=== PATIENT | female | born 1945 | race Caucasian/White ===

== ENCOUNTER 2016-06-26 10:46 | Day surgery (SDC) | payer MEDICARE ==
[2016-06-26] MEDS ORDERED: LACTATED RINGERS 1,000 ML IV ONE (11:35)
[2016-06-26] MEDS ORDERED: MIDAZOLAM 2 MG/2 ML VIAL IVP ONE (12:31)
[2016-06-26] MEDS ORDERED: fentaNYL 100 MCG/2 ML VIAL IVP ONE (12:31)
== END 2016-06-26 10:47 | disposition home or self-care (01) ==
PROC: 0DBN8ZX Excision of Sigmoid Colon, Via Natural or Artificial Opening Endoscopic, Diagnostic (ICD-10-PCS; 2016-06-26)
PROC: 0DBM8ZX Excision of Descending Colon, Via Natural or Artificial Opening Endoscopic, Diagnostic (ICD-10-PCS; 2016-06-26)
PROC: 0DBK8ZX Excision of Ascending Colon, Via Natural or Artificial Opening Endoscopic, Diagnostic (ICD-10-PCS; principal; 2016-06-26 12:00)
DX: R19.5 Other fecal abnormalities (principal); D12.2 Benign neoplasm of ascending colon; D12.4 Benign neoplasm of descending colon; D12.5 Benign neoplasm of sigmoid colon; K57.30 Diverticulosis of large intestine without perforation or abscess without bleeding; I10 Essential (primary) hypertension; J45.909 Unspecified asthma, uncomplicated; Z88.0 Allergy status to penicillin; Z88.2 Allergy status to sulfonamides
CPT/HCPCS: 45380; J7120

== ENCOUNTER 2017-12-04 10:04 | Outpatient (CLI) | payer MEDICARE ==
--- NOTE | 2017-12-05 12:15 | Mammography Report ---
Reason: SCREENING MAMMO Procedure Date: 12/04/2017 Accession Number: [id number] / [id number] Procedure: MGN - Screening Mammo Dig Bilat CPT Code: FULL RESULT: EXAM: Screening Mammo Dig Bilat DATE: 12/04/2017 10:33 AM CLINICAL HISTORY: 72-year-old female with family history of breast cancer in the mother at age 80 and a sister at age 60. TECHNIQUE: Bilateral CC and MLO views were obtained. COMPARISON: 04/29/2011, 11/24/2007, 06/19/2006. FINDINGS: The breasts demonstrate heterogeneously dense fibroglandular parenchyma bilaterally. Coarse typically benign calcifications are seen in both breasts. No suspicious masses, clustered microcalcifications, or regions of architectural distortion are identified. IMPRESSION: Benign findings RECOMMENDATION: Routine annual screening unless otherwise clinically indicated. BIRADS CATEGORY 2: Benign findings STANDARD QUALIFYING STATEMENTS: 1. This examination was reviewed with the aid of Computer-Aided Detection (CAD). 2. A negative or benign imaging report should not delay biopsy if clinically suspicious findings are present. Consider surgical consultation if warrented. More than 5% of cancers are not identified by imaging. 3. Dense breasts may obscure an underlying neoplasm. 4. This examination was reviewed without the aid of 3D breast imaging (tomosynthesis).
== END 2017-12-04 10:05 | disposition home or self-care (01) ==
LOC: DI.N 10:04
DX: Z12.31 Encounter for screening mammogram for malignant neoplasm of breast (principal); Z80.3 Family history of malignant neoplasm of breast
CPT/HCPCS: 77067

== ENCOUNTER 2019-04-29 07:29 | Day surgery (SDC) | payer MEDICARE ==
[~2019-04-29 07:29] MED LIST: CYCLOPENTOLATE 1% OPHTH DROPS 2 ML ONE; KETOROLAC 0.45% OPHTH DROPS ONE; PHENYLEPHRINE 2.5% OPHTH 2 ML DROPS ONE; PROPARACAINE 0.5% OPHTH DROPS 15 ML ONE
[2019-04-29] MEDS ORDERED: MIDAZOLAM 2 MG/2 ML VIAL IVP ONE (07:30)
[2019-04-29] MEDS ORDERED: LACTATED RINGERS 500 ML IV ONE (07:37)
[2019-04-29] MEDS ORDERED: PHENYLEPHRINE 2.5% OPHTH 2 ML DROPS LEFTEYE ONE (07:45)
[2019-04-29] MEDS ORDERED: PROPARACAINE 0.5% OPHTH DROPS 15 ML LEFTEYE ONE ×2 (07:45→09:01)
[2019-04-29] MEDS ORDERED: KETOROLAC 0.45% OPHTH DROPS LEFTEYE ONE (07:45)
[2019-04-29] MEDS ORDERED: CYCLOPENTOLATE 1% OPHTH DROPS 2 ML LEFTEYE ONE (07:45)
--- NOTE | 2019-04-29 07:55 | ANESTHESIA ---
Pre-Anesthesia VS, & Labs - Diagnosis left eye cataract - Procedure left eye cataract removal Vital Signs: Temp Pulse Resp BP Pulse Ox 36.5 C 65 18 187/96 H 94 04/29/19 07:38 04/29/19 07:38 04/29/19 07:38 04/29/19 07:38 04/29/19 07:38 Height 5 ft 1 in Weight (kg) 70.31 kg - Is Patient ?: No Home Medications and Allergies Cetirizine [ZyrTEC] 10 mg PO ONCE 06/25/16 Fluticasone 44 Mcg [Flovent] 1 puffs INH BID 06/25/16 lisinopriL [Lisinopril] 5 mg PO DAILY 06/25/16 Allergies/Adverse Reactions: Allergies Allergy/AdvReac Type Severity Reaction Status Date / Time Penicillins Allergy Anaphylaxis Verified 04/29/19 07:36 oxycodone HCl * AdvReac Unknown Verified 04/29/19 07:36 [From Percocet] Sulfa (Sulfonamide AdvReac Hives Verified 04/29/19 07:36 Antibiotics) Anes History & Medical History - Anesthetic History Anesthesia Complications: reports: No previous complications Family history of Anesthesia Complications: Denies Family history of Malignant Hyperthermia: Denies - Medical History Cardiovascular: reports: Hypertension Pulmonary: reports: Asthma Gastrointestinal: reports: None, GERD Urinary: reports: None Neuro: reports: None Musculoskeletal: reports: Osteoarthritis, Chronic back pain Endocrine/Autoimmune: reports: None Blood Disorders: reports: None Skin: reports: None Smoking Status: Never smoker Psychosocial: reports: No issues indicated - Surgical History General: Cholecystectomy Orthopedic: Spine surgery, Other Exam General: Alert, Oriented x3, Cooperative, No acute distress Dental: WNL Mouth Openin Fingerbreadth Neck Mobility: Normal Mallampati classification: III Thyromental Distance: less than 4 cm Respiratory: Lungs clear, Normal breath sounds, No respiratory distress, No accessory muscle use Cardiovascular: Regular rate, Normal S1, Normal S2, No murmurs Abdomen: Normal bowel sounds, Soft, No tenderness, No hepatospenomegaly, No masses Extremities: No clubbing, No cyanosis, No edema, Normal pulses, No tenderness/swelling Neurological: Normal gait, Normal speech, Strength at 5/5 X4 ext, Normal tone, Sensation intact, Cranial nerves 3-12 NL, Reflexes 2+ Mental/Cognitive Status: Alert/Oriented X3, Normal for patient Cognitive Status: Within normal limits Plan Anesthesia Type: MAC Consent for Procedure(s) Verified and Reviewed: Yes Code Status: Attempt Resuscitation ASA classification: 2-Mild systemic disease Is this case an emergency?: No
[2019-04-29] MEDS ORDERED: TRIAMCIN/MOXIFLOX OPHTHALMIC 0.6 ML VIAL IO ONE ×4 (08:25→09:01)
[2019-04-29] MEDS ORDERED: BRIMONIDINE 0.2% OPHTH DROPS 5 ML ONE (08:28)
[2019-04-29] MEDS ORDERED: VANCOMYCIN OPHTHALMI 8MG/0.8ML 8 MG/0.8 ML SYRINGE IO ONE ×2 (08:28→09:01)
[2019-04-29] MEDS ORDERED: timoloL maleate 0.5% OPHTH DROPS (10ML) ONE (08:28)
[2019-04-29] MEDS ORDERED: BSS/LIDOCAINE/EPINEPHRINE 1 ML SYRINGE ONE (08:28)
[2019-04-29] MEDS ORDERED: CHONDR SULF/HYALURONATE SYRINGE IO ONE (09:00)
[2019-04-29] MEDS ORDERED: BRIMONIDINE 0.2% OPHTH DROPS 5 ML OPTH ONE (09:00)
[2019-04-29] MEDS ORDERED: EPINEPHrine 1 MG/ML AMP IVP ONE (09:00)
[2019-04-29] MEDS ORDERED: TIMOLOL 0.5% OPHTH DROPS OPTH ONE (09:00)
[2019-04-29] MEDS ORDERED: BSS/LIDOCAINE/EPINEPHRINE 1 ML SYRINGE IO ONE (09:01)
[2019-04-29 09:26] VITALS: BP 157/82
--- NOTE | 2019-04-29 09:41 | OPERATIVE REPORT ---
DATE OF SERVICE: 04/29/2019 Physician: Black Johnston MD PREOPERATIVE DIAGNOSIS: Visually significant cataract, left eye. This was her first cataract surger y. POSTOPERATIVE DIAGNOSIS: Visually significant cataract, left eye. This was her first cataract surge ry. DESCRIPTION OF PROCEDURE: Phacoemulsification with posterior chamber intraocular lens implant, left eye. SURGEON: Black Johnston MD ANESTHESIA: Monitored anesthesia care. COMPLICATIONS: None. OPERATIVE INDICATIONS: This is a 73-year-old woman with progressive vision loss in the left eye due to 2+ nuclear sclerotic and vacuolar or cataract. Best corrected visual acuity was 20/30, with glare to 20/60 in the left eye. Indications for surgery are overall decrease in vision, difficulty seeing words on a computer screen, difficulty seeing words, closed caption or game scores on TV, difficulty seeing street signs, difficulty driving in low light or at night, difficulty driving at night becaus e of headlights from other vehicles, and difficulty with glare or bright lights in any situation. Zen cortez was consented at length concerning risks and benefits of cataract surgery, after which she expresse d a desire to proceed with surgery. OPERATIVE PROCEDURE: Patient was taken to OR #3 and placed under monitored anesthesia care. A surgi yisel timeout was conducted confirming correct patient, correct procedure, and correct surgical site. She was given topical anesthesia and then prepped and draped in the usual sterile fashion. The eye w as entered at the 6 and 3 o'clock positions. Intracameral Shugarcaine was injected into the anterior chamber, followed by Viscoat. A continuous-tear curvilinear capsulorrhexis was performed. The nucl eus was hydrodissected and phacoemulsified. The cortex was evacuated using automated infusion and as piration. Provisc was injected in the capsular bag, and a 16.0 diopter intraocular lens was inserted into the bag. Infusion and aspiration was used to evacuate the viscoelastic materials. The eye was inflated to physiologic pressure using balanced salt solution and found to be watertight. Approxima tely 0.25 mL of a mixture of triamcinolone, moxifloxacin was injected transsclerally into the vitreou s in the inferotemporal quadrant. An additional 0.55 mL of a mixture of triamcinolone, moxifloxacin and vancomycin was injected subconjunctivally in the superior quadrant for infection and inflammation prophylaxis. Wound integrity was checked with Weck-Ana Maria sponges. Patient was taken from the operati ng room in good condition and given postoperative instructions. TD: 04/29/2019 09:20
== END 2019-04-29 07:30 | disposition home or self-care (01) ==
LOC: SDS 07:29
PROVIDERS: ATTEND Ophthalmology
DX: H25.812 Combined forms of age-related cataract, left eye (principal); I10 Essential (primary) hypertension; J45.909 Unspecified asthma, uncomplicated; Z79.899 Other long term (current) drug therapy; Z79.51 Long term (current) use of inhaled steroids
CPT/HCPCS: 66984; A9270; J3490; V2632

== ENCOUNTER 2019-09-23 07:10 | Day surgery (SDC) | payer MEDICARE ==
[2019-09-23] MEDS ORDERED: MIDAZOLAM 2 MG/2 ML VIAL IVP ONE (07:11)
[2019-09-23] MEDS ORDERED: fentaNYL 100 MCG/2 ML VIAL IVP ONE (07:11)
[2019-09-23] MEDS ORDERED: LACTATED RINGERS 500 ML IV ONE ×2 (07:30→08:50)
--- NOTE | 2019-09-23 08:24 | ANESTHESIA ---
Pre-Anesthesia VS, & Labs - Diagnosis Right senile cataract - Procedure right eye cataract with IOL implant Vital Signs: Temp Pulse Resp BP Pulse Ox 36.1 C L 57 L 18 173/83 H 98 09/23/19 07:17 09/23/19 07:17 09/23/19 07:17 09/23/19 07:17 09/23/19 07:17 Height 5 ft Weight (kg) 70 kg - NPO >8 hours - Is Patient ?: No Home Medications and Allergies Cetirizine [ZyrTEC] 10 mg PO ONCE 06/25/16 lisinopriL [Lisinopril] 5 mg PO DAILY 06/25/16 Allergies/Adverse Reactions: Allergies Allergy/AdvReac Type Severity Reaction Status Date / Time Penicillins Allergy Anaphylaxis Verified 04/29/19 07:36 oxycodone HCl * AdvReac Hives Verified 09/23/19 07:29 [From Percocet] Sulfa (Sulfonamide AdvReac Hives Verified 04/29/19 07:36 Antibiotics) Anes History & Medical History - Anesthetic History Anesthesia Complications: reports: No previous complications - Medical History Cardiovascular: reports: Hypertension Pulmonary: reports: Asthma Gastrointestinal: reports: GERD Urinary: reports: None Neuro: reports: None Musculoskeletal: reports: Osteoarthritis, Chronic back pain Endocrine/Autoimmune: reports: None Blood Disorders: reports: None Skin: reports: None Smoking Status: Never smoker Psychosocial: reports: No issues indicated - Surgical History General: Cholecystectomy Eyes Ears Nose Throat (EENT): Cataracts Orthopedic: Spine surgery, Other Exam General: Alert, Oriented x3, Cooperative, No acute distress Dental: WNL Mouth Openin Fingerbreadth Neck Mobility: Normal Mallampati classification: II Plan Anesthesia Type: MAC Consent for Procedure(s) Verified and Reviewed: Yes Code Status: Attempt Resuscitation ASA classification: 2-Mild systemic disease Is this case an emergency?: No
[2019-09-23] MEDS ORDERED: BSS/LIDOCAINE/EPINEPHRINE 1 ML SYRINGE ONE (08:27)
[2019-09-23] MEDS ORDERED: BRIMONIDINE 0.2% OPHTH DROPS 5 ML ONE (08:27)
[2019-09-23] MEDS ORDERED: VANCOMYCIN OPHTHALMI 8MG/0.8ML 8 MG/0.8 ML SYRINGE IO ONE ×2 (08:27→08:41)
[2019-09-23] MEDS ORDERED: TRIAMCIN/MOXIFLOX OPHTHALMIC 0.6 ML VIAL IO ONE ×2 (08:27→08:39)
[2019-09-23] MEDS ORDERED: EPINEPHrine 1 MG/ML AMP ONE (08:27)
[2019-09-23] MEDS ORDERED: TIMOLOL 0.5% OPHTH DROPS ONE (08:27)
[2019-09-23] MEDS ORDERED: TIMOLOL 0.5% OPHTH DROPS OPTH ONE (08:40)
[2019-09-23] MEDS ORDERED: CHONDR SULF/HYALURONATE SYRINGE IO ONE (08:40)
[2019-09-23] MEDS ORDERED: BSS/LIDOCAINE/EPINEPHRINE 1 ML SYRINGE IO ONE (08:40)
[2019-09-23] MEDS ORDERED: EPINEPHrine 1 MG/ML AMP IR ONE (08:40)
[2019-09-23] MEDS ORDERED: BRIMONIDINE 0.2% OPHTH DROPS 5 ML OPTH ONE (08:40)
[2019-09-23] MEDS ORDERED: PROPARACAINE 0.5% OPHTH DROPS 15 ML EACHEYE ONE (08:41)
[2019-09-23 09:01] VITALS: BP 130/71
--- NOTE | 2019-09-23 09:50 | OPERATIVE REPORT ---
DATE OF SERVICE: 09/23/2019 Physician: Black Johnston MD PREOPERATIVE DIAGNOSIS: Visually significant cataract, right eye. Cataract surgery was performed on the left eye on 04/29/2019. POSTOPERATIVE DIAGNOSIS: Visually significant cataract, right eye. Cataract surgery was performed on the left eye on 04/29/2019. PROCEDURE: Phacoemulsification with posterior chamber intraocular lens implant, right eye. SURGEON: Black Johnston MD ANESTHESIA: Monitored anesthesia care. COMPLICATIONS: None. OPERATIVE INDICATIONS: This is a 74-year-old woman with progressive vision loss in the right eye due to 2+ nuclear sclerotic and cortical irregularities. Best corrected visual acuity was 20/30, with glare to 20/125 in the right eye. Indications for surgery were difficulty seeing street signs, difficulty driving in low light or at night, difficulty driving at night because headlights from other vehicles, and difficulty with glare or bright lights in any situation. She was consented at length concerning risks and benefits of cataract surgery, after which she expressed a desire to proceed with surgery. OPERATIVE PROCEDURE: Patient was taken to OR #3 and placed under monitored anesthesia care. A surgical timeout was conducted confirming correct patient, correct procedure, and correct surgical site. She was given topical anesthesia, and prepped and draped in the usual sterile fashion. The eye was entered at the 12 and 9 o'clock positions. Intracameral Shugarcaine was injected into the anterior chamber, followed by Viscoat. A continuous-tear curvilinear capsulorrhexis was performed. The nucleus was hydrodissected and phacoemulsified. The cortex was evacuated using automated infusion and aspiration. Provisc was injected in the capsular bag, and a 16.5 diopter intraocular lens inserted in the bag. Infusion and aspiration was used to evacuate the viscoelastic materials. The eye was inflated to physiologic pressure using balanced salt solution and found to be watertight. Approximately 0.25 mL of a mixture of triamcinolone and moxifloxacin was injected trans sclerally into the vitreous in the inferotemporal quadrant. An additional 0.55 mL of a mixture of triamcinolone, moxifloxacin and vancomycin was injected subconjunctivally in the superior quadrant for infection and inflammation prophylaxis. Wound integrity was checked with Weck-Ana Maria sponges. Patient was taken from the Operating Room in good condition and given postoperative instructions. TD: 09/23/2019 09:01 JOHANA
== END 2019-09-23 07:11 | disposition home or self-care (01) ==
LOC: SDS 07:10
PROVIDERS: ATTEND Ophthalmology
DX: H25.811 Combined forms of age-related cataract, right eye (principal); Z98.42 Cataract extraction status, left eye; J45.909 Unspecified asthma, uncomplicated; I10 Essential (primary) hypertension; Z87.891 Personal history of nicotine dependence
CPT/HCPCS: 66984; A9270; J3490; V2632

== ENCOUNTER 2021-01-29 08:00 | Outpatient (CLI) | payer MEDICARE | END 2021-01-29 23:59 | LOC: LAB.N 08:00 | PROVIDERS: ATTEND Nurse Practitioner | DX: R05.8 Other specified cough (principal); Z20.822 Contact with and (suspected) exposure to COVID-19 ==

== ENCOUNTER 2022-03-29 07:50 | Outpatient (CLI) | payer MEDICARE ==
--- NOTE | 2022-03-29 17:14 | Ultrasound Report ---
PROCEDURE: Retroperitoneal INDICATIONS: AKF TECHNIQUE: Real-time scanning was performed of the retroperitoneal organs, with image documentation. COMPARISON: None. FINDINGS: Kidneys: Kidneys are normal in size. Right kidney measures 11.1 cm long; left kidney measures 11.6 cm long. Right renal cortical thickness is 1.2 cm; left renal cortical thickness is 1.3 cm. No angelina d masses, hydronephrosis, or nephrolithiasis. Bladder: Pre-void bladder volume is 69 mL. Post-void residual is 51 mL. Pre-void images demonstrat e no intraluminal masses or stones. On pre-void images, left ureteral jet is noted with color Dopple r interrogation. (Of note, ureteral jets may not be detectable in up to 25% of cases due to insuffic ient differences in specific gravity between ureteral and bladder urine). Miscellaneous: No free abdominal fluid. Incidentally noted is placed hepatic echotexture, compatible with hepatic fatty infiltration. IMPRESSION: 1. A cause for acute renal failure is not identified on ultrasound. 2. 51 mL post void residual in urinary bladder. Reviewed by: Mary Joyce MD on 03/29/2022 5:12 PM PST Approved by: Mary Joyce MD on 03/29/2022 5:12 PM PST Station ID: [id number]
== END 2022-03-29 07:51 | disposition home or self-care (01) ==
LOC: DI 07:50
PROVIDERS: ATTEND Internal Medicine
DX: N17.9 Acute kidney failure, unspecified (principal)

== ENCOUNTER 2022-12-30 12:44 | Outpatient (CLI) | payer MEDICARE | END 2022-12-30 23:59 | disposition short-term general hospital (02) | LOC: EMS 12:44 | DX: R07.9 Chest pain, unspecified (principal); M79.602 Pain in left arm; I49.8 Other specified cardiac arrhythmias | CPT/HCPCS: A0425; A0427 ==